=== PATIENT | male | born 1985 | race African-American/Black ===

== ENCOUNTER 2017-03-23 13:49 | Emergency (ER) | payer SELFPAY ==
[~2017-03-23] VITALS: Ht 185.4 cm; Wt 122.7 kg
[2017-03-23] MEDS ORDERED: ULTRAM50 MG PO (16:32)
[2017-03-23] MEDS ORDERED: NAPROSYN500 MG PO (16:32)
[2017-03-23] MEDS ORDERED: NEURONTIN300 MG PO (16:32)
[2017-03-23 16:53] VITALS: BP 120/76
== END 2017-03-23 16:57 | disposition home or self-care (01) ==
LOC: EME 13:49
DX: M54.5 Low back pain (principal); R20.2 Paresthesia of skin; W03.XXXA Other fall on same level due to collision with another person, initial encounter; Y93.61 Activity, american tackle football; J45.909 Unspecified asthma, uncomplicated; F17.200 Nicotine dependence, unspecified, uncomplicated; Z88.5 Allergy status to narcotic agent; Z88.8 Allergy status to other drugs, medicaments and biological substances
CPT/HCPCS: 72220; 99281; 99284; J1885